=== PATIENT | female | born 1965 | race Caucasian/White ===

== ENCOUNTER 2017-04-04 17:20 | Emergency (ER) | payer BC, OTHER ==
[2017-04-04] MEDS ORDERED: MORPHINE 10 MG/ML SYRINGE ONE (17:44)
--- NOTE | 2017-04-04 18:08 | RAD ---
THREE VIEWS RIGHT SHOULDER 04/04/17 COMPARISON: 09/10/13 HISTORY: Injury. FINDINGS: there is mild degenerative change of the right AC joint. The right AC and CC interspaces are unchang ed when compared to 09/10/13. No displaced fracture or dislocation is seen. IMPRESSION: Stable right shoulder series. No acute fracture or dislocation. POS: [facility]
== END 2017-04-04 18:25 | disposition home or self-care (01) ==
LOC: MADERS 17:20
DX: S49.91XA Unspecified injury of right shoulder and upper arm, initial encounter (principal); J44.9 Chronic obstructive pulmonary disease, unspecified; F32.9 Major depressive disorder, single episode, unspecified; F17.210 Nicotine dependence, cigarettes, uncomplicated; I25.10 Atherosclerotic heart disease of native coronary artery without angina pectoris; M48.00 Spinal stenosis, site unspecified; M19.90 Unspecified osteoarthritis, unspecified site; X50.1XXA Overexertion from prolonged static or awkward postures, initial encounter
CPT/HCPCS: 96372; J2270

== ENCOUNTER 2019-11-24 14:27 | Emergency (ER) | payer SELFPAY ==
[~2019-11-24 14:27] MED LIST: Iopamidol 370 76% 125 ML VIAL FS ONE
[2019-11-24] MEDS ORDERED: Nitroglycerin 2% Ointment 1 INCH/1 GM Packet ONE (15:00)
[2019-11-24] MEDS ORDERED: Aspirin Chewable 81 MG TAB ONE (15:00)
[2019-11-24 15:04] LABS: #Basophils 0.1 thou/uL (0.0-0.2); #Eosinphils 0.6 thou/uL (0.0-0.7); #Lymphocytes 3.5 thou/uL (1.20-3.40); #Monocytes 0.5 thou/uL (0.11-0.59); #Neutrophils 4.8 thou/uL (1.40-6.50); %Basophils 1.3 % (0.0-1.0); %Eosinophils 6.1 % (0.0-10.0); %Lymphocytes 36.5 % (21.0-51.0); %Monocytes 5.6 % (0.0-10.0); %Neutrophils 50.4 % (42.0-75.0); Hemoglobin 13.3 g/dL (12.0-16.0); Mean Corpuscular HGB CONC 32.1 g/dL (32.0-36.0); Mean Corpuscular Hemoglobin 29.6 pg (27.0-31.0); Mean Corpuscular Volume 92.1 fL (78.0-98.0); Mean Platelet Volume 8.5 fL (7.4-10.4); Platelet Count 286 thou/uL (130-400); RBC Distribution Width 12.5 % (11.5-14.5); White Blood Cell (WBC) Count 9.5 thou/uL (4.8-10.8)
[2019-11-24 15:16] LABS: ALT (SGPT) 14 U/L (8-55); AST (SGOT) 13 U/L (5-34); Albumin 4.3 g/dL (3.5-5.0); Alkaline Phosphatase 68 U/L (40-110); Anion Gap 15 mmol/L (10-20); BUN (Urea Nitrogen) 14 mg/dL (9.8-20.1); Bilirubin, Total 0.3 mg/dL (0.2-1.2); Calc. Creatinine Clearance 0 mL/min (70-130); Calcium 9.4 mg/dL (7.8-10.44); Carbon Dioxide 26 mmol/L (22-29); Chloride 106 mmol/L (98-107); Estimated GFR-MDRD 80; Globulin 2.8 g/dL (2.4-3.5); Glucose 127 mg/dL (70-105); Protein, Total 7.1 g/dL (6.0-8.3); Sodium 143 mmol/L (136-145)
--- NOTE | 2019-11-24 15:44 | CT ---
CTA OF THE THORAX UTILIZING IV CONTRAST AND PE PROTOCOL AND 3D REFORMATTED IMAGING: INDICATION: History of breast cancer with acute chest pain and shortness of breath. COMPARISON: CT of the thorax dated 12/18/2012. FINDINGS: No central or segmental pulmonary embolus is evident. There is a calcification seen involving the pulmonary arterial branching of the posterior right lower lobe on image 64 of series 2 that has been stable since 2013 that may reflect sequelae of prior gran ulomatous disease or possibly a remote chronic DVT. Heart and great vessels appear within normal limits. No new suspicious pulmonary nodule is evident. There is scattered emphysema which is stable-appearin g. Mild pleural thickening involving the right major fissure on image 52 of series 3 is stable. No pleural effusion or pneumothorax is evident. There are vascular calcifications involving the thoracic aorta. Visualized upper abdomen reveals no definite acute abnormality. No acute osseous abnormality is evident. There is scattered degenerative and osteoarthritic change. IMPRESSION: 1. No central or segmental pulmonary embolus demonstrated. 2. Scattered emphysema. 3. Other chronic findings as above. POS: [facility]
== END 2019-11-24 17:36 | disposition short-term general hospital (02) ==
LOC: MADERS 14:27
DX: I24.9 Acute ischemic heart disease, unspecified (principal); R20.2 Paresthesia of skin; I25.10 Atherosclerotic heart disease of native coronary artery without angina pectoris; M48.00 Spinal stenosis, site unspecified; M19.90 Unspecified osteoarthritis, unspecified site; J44.9 Chronic obstructive pulmonary disease, unspecified; F32.9 Major depressive disorder, single episode, unspecified; F17.210 Nicotine dependence, cigarettes, uncomplicated; Z79.899 Other long term (current) drug therapy
CPT/HCPCS: 71275; 80053; 83880; 84484; 85025; 93005; Q9967

== ENCOUNTER 2020-02-08 16:56 | Outpatient (CLI) | payer OTHER ==
[~2020-02-08 16:56] MED LIST changes: +Iopamidol 370 76% 100 ML VIAL ONE; -Iopamidol 370 76% 125 ML VIAL FS ONE
--- NOTE | 2020-02-08 20:18 | CT ---
CT OF CHEST PERFORMED WITH INTRAVENOUS CONTRAST ENHANCEMENT: 02/08/20 HISTORY: 100 lb. weight loss. History of breast cancer and bilateral mastectomies. The lungs are clear of any infiltrative process. There are no pulmonary nodules or pleural effusions identified. No infiltrative lung changes. No significant mediastinal or hilar adenopathy. No signific ant axillary adenopathy. 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 Visualized liver parenchyma shows no focal f indings. Review of osseous structures show arthritic change of the spine. IMPRESSION: No evidence of any pulmonary nodules or infiltrative process. No mediastinal or hilar adenopathy. No liver masses are identified. 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 POS: [facility]
== END 2020-02-08 16:57 | disposition home or self-care (01) ==
LOC: MADCT 16:56
PROVIDERS: ATTEND Physician Assistant
DX: R63.4 Abnormal weight loss (principal)
CPT/HCPCS: 71260; Q9967